=== PATIENT | male | born 1960 | race African-American/Black ===

== ENCOUNTER 2024-09-23 12:33 | Outpatient (CLI) | payer OTHER, SELFPAY ==
[2024-09-23 13:00] VITALS: PULSE 64; PULSE 71
[2024-09-23] MEDS: ALBUTEROL 0.083% 2.5 MG/3 ML NEB IH (13:00)
--- NOTE | 2024-09-23 13:32 | XR_ITS ---
FINAL REPORT CLINICAL HISTORY: Shortness of breath FINDINGS: PA and lateral views of the chest are obtained. There is no prior exam for comparison. The heart is mildly enlarged. There is a right infrahilar mass-like opacity. The lungs are otherwise clear. There is no pleural effusion, pneumothorax, or acute osseous abnormality. IMPRESSION: Right infrahilar mass-like opacity. Recommend CT with contrast. Reviewed, Interpreted and Dictated by Didi Geiger MD Transcribed by Anaid Shields Authenticated and [facility]
== END 2024-09-23 23:59 | disposition home or self-care (01) ==
LOC: RT 12:34
PROVIDERS: PCP Internal Medicine; Visit Provider Chiropractor
DX: R06.00 Dyspnea, unspecified (principal); Z87.891 Personal history of nicotine dependence
CPT/HCPCS: 71046; 94010; 94640; J7613